=== PATIENT | female | born 1960 | race Caucasian/White ===

== ENCOUNTER 2019-06-25 06:00 | Inpatient (IN) | payer BC ==
[~2019-06-25] VITALS: Ht 160 cm; Wt 79.4 kg
[2019-06-25] MEDS ORDERED: ALVIMOPAN 12 MG CAPSULE PO ONE ×2 (06:45)
[2019-06-25] MEDS ORDERED: cefOXitin SODIUM 2 GM in D5W 100 ML IV ONE (06:45)
[2019-06-25] MEDS ORDERED: GLYCOPYRROLATE 0.2 MG/ML VIAL IJ ONE ×2 (07:30→10:53)
[2019-06-25] MEDS ORDERED: LABETALOL 100 MG/ 20ML VIAL IVP ONE (07:30)
[2019-06-25] MEDS ORDERED: hydrALAZINE HCL 20 MG/ML VIAL IVP ONE (07:30)
[2019-06-25] MEDS ORDERED: MIDAZOLAM HCL 5 MG/5 ML VIAL IVP ONE (07:30)
[2019-06-25] MEDS ORDERED: SEVOFLURANE 15 MIN GAS INH ONE (07:30)
[2019-06-25] MEDS ORDERED: BUPIVACAINE LIPOSOME/PF 266 MG/20 ML VIAL INFIL ONE ×2 (07:30→07:41)
[2019-06-25] MEDS ORDERED: ROCURONIUM BROMIDE 10 MG/ML (ZEMURON) IV ONE (07:30)
[2019-06-25] MEDS ORDERED: fentaNYL CITRATE/PF 100 MCG/2 ML AMP IVP ONE (07:30)
[2019-06-25] MEDS ORDERED: LIDOCAINE 1% 10 MG/ML, 20 ML MDV INJ ONE (07:30)
[2019-06-25] MEDS ORDERED: BUPIVACAINE /EPINEPHRINE/PF 0.5% 30 ML VIAL INJ ONE (07:30)
[2019-06-25] MEDS ORDERED: PHENYLEPHRINE HCL 10 MG/ML VIAL (NEOSYNEPHRINE) IV ONE (07:30)
[2019-06-25] MEDS ORDERED: NS IRRIG SOLN 1000 ML IR ONE (07:30)
[2019-06-25] MEDS ORDERED: NS 1000 ML IV.SOLN IV ONE ×2 (07:30)
[2019-06-25] MEDS ORDERED: LR 1,000 ML IV.SOLN IV ONE (07:30)
[2019-06-25] MEDS ORDERED: SIMV40TA2 PO (07:37)
[2019-06-25] MEDS ORDERED: INSU100V9 SQ (07:37)
[2019-06-25] MEDS ORDERED: HYDR25TA4 PO (07:37)
[2019-06-25] MEDS ORDERED: fentaNYL CITRATE/PF 100 MCG/2 ML AMP IVP PRN (08:00)
[2019-06-25] MEDS ORDERED: ONDANSETRON HCL 4 MG/2 ML VIAL IVP PRN ×2 (08:00→10:00)
[2019-06-25] MEDS ORDERED: D5/0.45 NS 1,000 ML IV SCH (09:57)
[2019-06-25] MEDS ORDERED: ACETAMINOPHEN 325 MG TABLET PO PRN (10:00)
[2019-06-25] MEDS ORDERED: HYDROcodone/ACETAMIN 5-325 MG TAB (NORCO/ VICODIN) PO PRN ×2 (10:00)
[2019-06-25] MEDS: fentaNYL CITRATE/PF 100 MCG/2 ML AMP IVP PRN ×2 (10:25→10:40)
[2019-06-25 10:33] LABS: HEMATOCRIT 30.2 % (36-48); HEMOGLOBIN 9.6 g/dL (12.0-16.0)
[2019-06-25 10:42] LABS: CALCIUM 7.9 mg/dL (8.4-11.0); CREATININE 2.72 mg/dL (0.55-1.30); POTASSIUM 4.2 mmol/L (3.5-5.1)
[2019-06-25] MEDS ORDERED: fentaNYL CITRATE/PF 100 MCG/2 ML AMP ONE (10:43)
[2019-06-25] MEDS ORDERED: GLYCOPYRROLATE 0.2 MG/ML VIAL IV ONE (11:00)
[2019-06-25] MEDS ORDERED: HYDROmorphone 1 MG INJ. 1 MG/ML AMPUL ONE (11:25)
[2019-06-25] MEDS ORDERED: ONDANSETRON HCL 4 MG/2 ML VIAL ONE (11:38)
--- NOTE | 2019-06-25 11:45 | NUR ---
Received patient via gurney, she was not alert and oriented, seemed still sedated from procedure. Her blood pressure was low, will continue to monitor every 15 mins and then 30 mins. IV line is patent and running fluids. Incision is covered w/gauze and not oozing or bleeding. I will continue to monitor patients progress. Bed is low, locked, 2 side rails up and call light within reach. Heron WILSON
--- NOTE | 2019-06-25 13:20 | NUR ---
CONSULT MEDICAL MANAGEMENT S/P POST OP DR CHRISTENSEN [phone] S/W LISA ALY
--- NOTE | 2019-06-25 14:00 | NUR ---
Patient is woke up and asked for pain medication, dilaudid was given via IV. Her blood pressure is much improved. Bed is low, locked, 2 side rails up and call light within reach. Heron WILSON
[2019-06-25] MEDS: metroNIDAZOLE 500 mg/NS 100 ML IV SCH ×2 (14:02→21:09)
[2019-06-25] MEDS: HYDROmorphone 1 MG INJ. 1 MG/ML AMPUL IVP PRN ×3 (14:02→21:23)
--- NOTE | 2019-06-25 16:00 | NUR ---
Patient is more awake and alert, admission questions were asked and patient was able to answer them. She is not showing any signs of distress. Pain medication was given earlier today. She was admitted for malignant neoplasm of the rectum and she had surgery to remove part of her bowel. Report will be given to nurse. Bed is low, locked, 2 side rails up and call light within reach. Heron WILSON
[2019-06-25 16:37] VITALS: BP_SYST 133
[2019-06-25 16:52] LABS: HEMATOCRIT 31.1 % (36-48); HEMOGLOBIN 9.9 g/dL (12.0-16.0)
[2019-06-25 17:07] VITALS: BP_SYST 123
--- NOTE | 2019-06-25 19:20 | NUR ---
OPENING NOTE: Patient is awake at time, AOx4. No s/s of acute distress noted. Breathing is even and unlabored. No complaints of pain noted at this time. IV site is patent without signs of infection or infiltration. Covarrubias catheter is patent, attached, and draining by gravity. Surgical site is without signs of active bleeding or draining. Patient has incentive spirometer at bedside. SCDs are attached and operating. Bed is locked in lowest position, bed alarm on, call light with patient. Patient educated on use and importance of call light. Patient verbalized understanding and properly demonstrated use. Will continue to monitor.
[2019-06-25 20:00] VITALS: BP_SYST 145
[2019-06-25] MEDS: ALVIMOPAN 12 MG CAPSULE PO SCH (21:00)
[2019-06-25] MEDS: FAMOTIDINE PF 20 MG/2 ML VIAL IVP SCH (21:23)
--- NOTE | 2019-06-25 21:23 | NUR ---
PAIN MANAGEMENT: Patient with complains of 7/10 pain at this time. Will medicate with PRN medication accordingly.
[2019-06-25] MEDS: cefOXitin SODIUM 2 GM in D5W 100 ML IV SCH (22:00)
--- NOTE | 2019-06-25 23:28 | NUR ---
EDUCATION ON IS/ROUNDS: Patient is resting at this time. States pain medication is effective. Breathing is even and unlabored. Patient was educated on use, importance, and benefits of incentive spirometer. Patient verbalized understanding and properly demonstrated use hitting the 1500 dylan. No new needs at this time. Bed locked in lowest position, bed alarm is on, call light with patient. Will continue to monitor.
[2019-06-26 00:19] VITALS: BP_SYST 132
[2019-06-26] MEDS: HYDROmorphone 1 MG INJ. 1 MG/ML AMPUL IVP PRN ×3 (01:22→09:58)
--- NOTE | 2019-06-26 01:25 | NUR ---
PAIN MANAGEMENT: Patient complaining of 9/10 pain in abdomen. Repositioning and deep breathing encouraged and patient medicated accordingly. Will continue to monitor.
--- NOTE | 2019-06-26 03:30 | NUR ---
ROUNDS: Patient is asleep at this time. Breathing is even and unlabored. Bed locked in lowest position, bed alarm on, call light with patient. Will continue to monitor.
--- NOTE | 2019-06-26 05:50 | NUR ---
PAIN MANAGEMENT: Patient with complaints of pain 8/10 in abdomen and lower pack. Will give PRN medications accordingly. Will continue to monitor.
[2019-06-26 06:19] LABS: BASOPHILS % (AUTO) 0.6 % (0.0-2.0); EOSINOPHILS # (AUTO) 0.1 K/uL (0.0-0.4); EOSINOPHILS % (AUTO) 0.9 % (0.0-4.0); HEMATOCRIT 27.9 % (36-48); LYMPHOCYTES % (AUTO) 23.9 % (20.5-51.5); MEAN CORPUSCULAR HEMOGLOBIN 26 pg (27-31); MEAN CORPUSCULAR HGB CONC 32 % (32-36); MEAN CORPUSCULAR VOLUME 81 fL (79.0-98.0); MONOCYTES # (AUTO) 0.8 K/uL (0.0-1.0); MONOCYTES % (AUTO) 9.5 % (1.7-9.3); NEUTROPHILS # (AUTO) 5.4 K/uL (1.8-7.7); NEUTROPHILS % (AUTO) 65.1 % (40.0-70.0); PLATELET COUNT (AUTO) 332 K/uL (130-430); RED BLOOD CELL COUNT(AUTO) 3.44 MIL/uL (4.2-6.2); RED CELL DISTRIBUTION WIDTH 14.2 % (9.0-15.0); WHITE BLOOD COUNT (AUTO) 8.3 K/uL (4.8-10.8)
--- NOTE | 2019-06-26 06:45 | NUR ---
CLOSING NOTE: Patient is awake at time, AOx4. No s/s of acute distress noted. Breathing is even and unlabored. No complaints of pain noted at this time. IV site is patent without signs of infection or infiltration. Covarrubias catheter is patent, attached, and draining by gravity. Surgical site is without signs of active bleeding or draining. Patient has incentive spirometer at bedside. SCDs are attached and operating. All needs met throughout the shift. All safety and fall precautions maintained throughout the shift. Will continue to monitor until endorsement of care to dayshift nurse.
[2019-06-26 06:53] LABS: CALCIUM 7.4 mg/dL (8.4-11.0); CREATININE 3.06 mg/dL (0.55-1.30); POTASSIUM 4.4 mmol/L (3.5-5.1); TOTAL BILIRUBIN 0.3 mg/dL (0.0-1.0)
--- NOTE | 2019-06-26 07:51 | NUR ---
Opening notes Received pt in bed , pt is aaox4, denies pain, no sob, no resp distress. vitals wnl. no fever. abd surgical dressing dry and intact, no drainage noted. pt encouraged to call for assist and pain meds. call light in reach. bed in low position. will cont to monitor.
[2019-06-26 07:54] VITALS: BP_SYST 126
--- NOTE | 2019-06-26 08:30 | NUR ---
pt ambulated with charge nurse fabby in the [address]. pt tolerated well.
[2019-06-26] MEDS: FAMOTIDINE PF 20 MG/2 ML VIAL IVP SCH ×2 (08:37→21:23)
[2019-06-26] MEDS: cefOXitin SODIUM 2 GM in D5W 100 ML IV SCH (08:37)
[2019-06-26] MEDS: ENOXAPARIN SODIUM 30 MG/0.3 ML SYRINGE SUBCUT SCH (08:43)
[2019-06-26] MEDS: ALVIMOPAN 12 MG CAPSULE PO SCH ×2 (09:02→21:22)
--- NOTE | 2019-06-26 09:38 | NUR ---
Nutrition Update Nick Scale 15 noted. Pt admitted for malignant neoplasm of rectum. Diet: clear liquid BMI: 31 kg/m2 RD to follow per nutrition care standards.
--- NOTE | 2019-06-26 09:55 | NUR ---
PT GIVEN PAIN MED AFTER ASSISTED BACK FOR BED FROM CHAIR.
[2019-06-26] MEDS ORDERED: DEXTROSE 50% JECT 50 ML DISP.SYRIN IVP PRN (11:30)
[2019-06-26] MEDS: METOCLOPRAMIDE HCL 10 MG/2 ML VIAL IVP SCH ×2 (12:31→17:15)
[2019-06-26] MEDS: INSULIN REGULAR, HUMAN 100 UNITS/ML, 10 ML VIAL (humuLIN R) SUBCUT PRN ×2 (12:33→17:08)
[2019-06-26 13:03] VITALS: BP_SYST 157
--- NOTE | 2019-06-26 15:06 | NUR ---
PT C/O NOT FEELING GOOD, REQUESTED THIS RN TO CHECK HER BLOOD SUGAR. IT WAS 393. WILL CONT TO MONITOR PT.
[2019-06-26 17:37] VITALS: BP_SYST 154
--- NOTE | 2019-06-26 19:05 | NUR ---
OPENING NOTE: Patient awake at this time, AOx4. No acute distress noted. Patient is without complaints of pain at this time. Breathing is even and unlabored. IV site is without signs of infection or infiltration. Incentive spirometer is on the beside table. Patient has been educated on use and benefits and encouraged to do so while awake. Patient verbalized understanding and demonstrated proper use. Patient tolerated 500mL. Will continue to encourage and monitor progress. Patient has walker bedside, but does not need it to ambulate as she ambulates with a steady gait. Bed locked in lowest position, call light with patient. Patient educated on use and importance of call light. Patient verbalized understanding and demonstrated proper use. Will continue to monitor.
[2019-06-26 20:00] VITALS: BP_SYST 149
--- NOTE | 2019-06-26 21:30 | NUR ---
MCKEON CATH DC: Mckeon catheter discontinued at this time. Bulb deflated with 9cc water. Output of urine in bag is 350mL. Pt tolerated procedure well no acute distress noted. Will continue to monitor.
--- NOTE | 2019-06-26 23:44 | NUR ---
SBAR Report Received from Ella WILSON .
[2019-06-27] VITALS: BP_SYST 156
[2019-06-27] MEDS: METOCLOPRAMIDE HCL 10 MG/2 ML VIAL IVP SCH ×3 (01:33→12:23)
--- NOTE | 2019-06-27 01:41 | NUR ---
CONSULTATION PAGED/CALLED Reason for Consultation: RENAL FAILURE Person Who was Notified: MARLON Consulting Physician: KIA De Ionizer Operator Specialty: NEPHRO Ordering Physician: AMPARO
--- NOTE | 2019-06-27 03:49 | NUR ---
ASSIST Patient out of bed to Rest Room ambulates safety measures implemented call white given to patient .
--- NOTE | 2019-06-27 03:52 | NUR ---
MCKEON CATHETER has been d/c patient is able to urinate uses Rest Room as needed ambulates alert oriented .
[2019-06-27] MEDS: INSULIN REGULAR, HUMAN 100 UNITS/ML, 10 ML VIAL (humuLIN R) SUBCUT PRN ×2 (06:00→12:28)
--- NOTE | 2019-06-27 06:48 | NUR ---
Patient awake alert assist out of bed ambulates to Rest Room safety measures implemented fall measures effective .
[2019-06-27 08:11] VITALS: BP_SYST 154
--- NOTE | 2019-06-27 08:25 | NUR ---
DR BENJAMIN WAS HERE AND SEEN PT, SPOKE WITH PT RE FOLLOW UP AND DISCHARGE.
[2019-06-27 09:58] LABS: BASOPHILS # (AUTO) 0.1 K/uL (0.0-0.2); BASOPHILS % (AUTO) 0.6 % (0.0-2.0); EOSINOPHILS # (AUTO) 0.1 K/uL (0.0-0.4); EOSINOPHILS % (AUTO) 0.9 % (0.0-4.0); HEMATOCRIT 28.4 % (36-48); HEMOGLOBIN 9.1 g/dL (12.0-16.0); LYMPHOCYTES # (AUTO) 1.8 K/uL (1.0-5.5); LYMPHOCYTES % (AUTO) 16.3 % (20.5-51.5); MEAN CORPUSCULAR HEMOGLOBIN 26 pg (27-31); MEAN CORPUSCULAR HGB CONC 32 % (32-36); MEAN CORPUSCULAR VOLUME 82 fL (79.0-98.0); MONOCYTES # (AUTO) 0.8 K/uL (0.0-1.0); MONOCYTES % (AUTO) 6.8 % (1.7-9.3); NEUTROPHILS # (AUTO) 8.4 K/uL (1.8-7.7); NEUTROPHILS % (AUTO) 75.4 % (40.0-70.0); PLATELET COUNT (AUTO) 321 K/uL (130-430); RED BLOOD CELL COUNT(AUTO) 3.47 MIL/uL (4.2-6.2); WHITE BLOOD COUNT (AUTO) 11.1 K/uL (4.8-10.8)
--- NOTE | 2019-06-27 10:00 | NUR ---
PT ATE ABOUT 10 PERCENT OF REGULAR DIET PROVIDED TO HER, NO C/O OF PAIN.
[2019-06-27 10:16] LABS: CALCIUM 7.8 mg/dL (8.4-11.0); CREATININE 2.87 mg/dL (0.55-1.30); POTASSIUM 3.9 mmol/L (3.5-5.1)
[2019-06-27] MEDS: FAMOTIDINE PF 20 MG/2 ML VIAL IVP SCH (10:16)
[2019-06-27] MEDS: ENOXAPARIN SODIUM 30 MG/0.3 ML SYRINGE SUBCUT SCH (10:17)
[2019-06-27 10:20] LABS: ALBUMIN 2.2 g/dL (3.4-4.8); TOTAL BILIRUBIN 0.4 mg/dL (0.0-1.0)
[2019-06-27] MEDS: ALVIMOPAN 12 MG CAPSULE PO SCH (10:20)
[2019-06-27 12:47] VITALS: BP_SYST 136
[2019-06-27] MEDS ORDERED: HYDR-4272 PO (13:16)
--- NOTE | 2019-06-27 13:40 | NUR ---
D/C Patient Patient given medication reconciliation form and D/C instructions. Exit Care provided. Patient verbalized understanding. MD discussed with patient the results and treatment provided. Ambulatory with steady gait for discharge to home. Patient in stable condition, ID band removed. IV catheter removed, intact and dressing applied, no active bleeding. Rx of NORCO given. Patient educated on pain management. All belongings sent with patient.
== END 2019-06-27 13:40 | disposition home or self-care (01) | DRG 329 ==
LOC: SMU 06:00
PROVIDERS: ADMIT Colon & Rectal Surgery; ATTEND Colon & Rectal Surgery
PROC: 0DBP0ZZ Excision of Rectum, Open Approach (ICD-10-PCS; 2019-06-25)
PROC: 0DBN0ZZ Excision of Sigmoid Colon, Open Approach (ICD-10-PCS; principal; 2019-06-25 07:30)
DX: C19 Malignant neoplasm of rectosigmoid junction (principal); N17.0 Acute kidney failure with tubular necrosis; K66.0 Peritoneal adhesions (postprocedural) (postinfection); E11.9 Type 2 diabetes mellitus without complications; Z79.4 Long term (current) use of insulin; Z79.899 Other long term (current) drug therapy
CPT/HCPCS: 36415; 76770; 80048; 80053; 82962; 85018-TC; 85025; 86886; 86900; 86901; 87081; 88307; 88309; 94010; C1727; C9290; J0360; J0694; J1170; J1650; J2001; J2250; J2370; J2405; J2765; J3010; J3490; J7030; J7060; J7120

== ENCOUNTER 2022-04-07 08:58 | Emergency (ER) | payer BC ==
[~2022-04-07] VITALS: Ht 162.6 cm; Wt 63.5 kg
[~2022-04-07 08:58] MED LIST: HYDR-4272 PO; INSU100V9 SQ; SIMV40TA2 PO
[2022-04-07 09:00] VITALS: BP_SYST 132
--- NOTE | 2022-04-07 09:01 | NUR ---
BROUGHT BACK TO BED #6 AND TRIAGED. REPORT GIVEN TO VICENTE
--- NOTE | 2022-04-07 09:34 | NUR ---
PT COMES TO ER WITH C/O LEFT UPPER ARM SHUNT NOT WORKING SINCE THIS MORNING. LAST DIALYSIS 2 DAYS AGO ON Tuesday04/05/22. PT HAS NO MEDICAL COMPLIANTS. RESP EVEN AND UNLABORED, ON RA @98%. VSS
--- NOTE | 2022-04-07 09:55 | NUR ---
DR ALLRED IN ROOM FOR EXAM
[2022-04-07 10:22] LABS: BASOPHILS # (AUTO) 0.1 K/uL (0.0-0.2); BASOPHILS % (AUTO) 0.7 % (0.0-2.0); EOSINOPHILS # (AUTO) 0.3 K/uL (0.0-0.4); EOSINOPHILS % (AUTO) 3.2 % (0.0-4.0); HEMATOCRIT 36.4 % (36-48); HEMOGLOBIN 11.9 g/dL (12.0-16.0); LYMPHOCYTES # (AUTO) 1.9 K/uL (1.0-5.5); LYMPHOCYTES % (AUTO) 23.8 % (20.5-51.5); MEAN CORPUSCULAR HEMOGLOBIN 28 pg (27-31); MEAN CORPUSCULAR HGB CONC 33 % (32-36); MEAN CORPUSCULAR VOLUME 85 fL (79.0-98.0); MONOCYTES # (AUTO) 0.4 K/uL (0.0-1.0); MONOCYTES % (AUTO) 5.3 % (1.7-9.3); NEUTROPHILS # (AUTO) 5.4 K/uL (1.8-7.7); PLATELET COUNT (AUTO) 262 K/uL (130-430); RED BLOOD CELL COUNT(AUTO) 4.29 MIL/uL (4.2-6.2); RED CELL DISTRIBUTION WIDTH 15.8 % (9.0-15.0)
[2022-04-07 10:33] LABS: CALCIUM 8.8 mg/dL (8.4-11.0)
[2022-04-07 10:36] LABS: CREATININE 8.26 mg/dL (0.55-1.30)
--- NOTE | 2022-04-07 10:41 | NUR ---
NO ACUTE CHANGES IN CONDITION, PT IN NAD.
--- NOTE | 2022-04-07 11:47 | NUR ---
NO ACUTE CHANGES IN CONDITION, PT IN NAD. RESP EVEN AND UNLABORED, ON RA @98%
--- NOTE | 2022-04-07 12:55 | NUR ---
[place] of care received, pt A&Ox4 , pt VSS, respirations even and unlabored, will cont to monitor.
--- NOTE | 2022-04-07 13:37 | NUR ---
Pt awaiting for ultrasound, VSS
[2022-04-07] MEDS ORDERED: AMLO5TAB92 PO (14:23)
[2022-04-07] MEDS ORDERED: RENA-VITE (14:23)
[2022-04-07] MEDS ORDERED: SIMV-46 PO (14:23)
[2022-04-07] MEDS ORDERED: CARV6.2554 PO (14:23)
--- NOTE | 2022-04-07 14:28 | NUR ---
MRSA and covid sent to the lab
--- NOTE | 2022-04-07 15:30 | NUR ---
SPOKE TO EMBER, [employer] LACE SEWER, GAVE UPDATE ON PT STATUS. STATED THAT [facility] IS AT [facility]ACITY AND IS WAITING FOR [facility] TO CALL BACK TO SEE IF PT CAN BE ACCEPTED. STATED SHE WILL CALL BOBBY DÍAZ AND GIVE UPDATE.
--- NOTE | 2022-04-07 16:47 | NUR ---
CECILIA PA CLINICAL ASSOCIATE, CALLED BACK AND STATED PT HAS BEEN ACCEPTED TO [facility]. DR. CASTAÑEDA IS ACCEPTING. STATED PT IS PLACED ON TRACKER AND WAITING FOR BED PLACEMENT. CASE WILL BE ENDORSED TO AFTER HOURS CLINICAL ASSOCIATE AND WILL FOLLOW UP SOON THERE IS AN UPDATE. AFTER HOURS #: [phone]
--- NOTE | 2022-04-07 17:57 | NUR ---
TRANSFER INFO [facility] RM: [id number] ACCEPTING: Dr. Bertrand REPORT: [phone] will call for transport to accepted facility
--- NOTE | 2022-04-07 18:30 | NUR ---
Pt BS 38, Pt A&Ox4, Dr Shah awared, dinner tray/ apple juice given to patient, well tolerated, will cont to monitor.
--- NOTE | 2022-04-07 18:59 | NUR ---
Attempted to call report to [facility], unable to reach nurse at this time
--- NOTE | 2022-04-07 19:05 | NUR ---
Report given to Krys WILSON at [facility] , pt A&Ox4, VSS, will cont to monitor.
[2022-04-07] MEDS ORDERED: DEXTROSE 50% JECT 50 ML DISP.SYRIN IVP ONE (19:30)
--- NOTE | 2022-04-07 19:44 | NUR ---
pt resting on gurney, connected to bedside monitors. a & o x 4, pupils perrl. pt was to have dialysis today and a pulse was not felt at the dialysis access. pt was found to be positive for DVT of the left arm. denies any pain at this time. no acute distress noted. gurney in lowest locked position. will continue to monitor.
--- NOTE | 2022-04-07 21:09 | NUR ---
accu check 348
--- NOTE | 2022-04-07 21:12 | NUR ---
pt resting on gurney, connected to bedside monitors. a & o x 4, pupils perrl. EMS here to take pt to [facility]. pt denies any pain or complaints at this time. no acute distress noted. gurney in lowest locked position.
--- NOTE | 2022-04-07 21:33 | NUR ---
Patient to be transferred to [facility]. Is being transferred due to higher level of care. Receiving facility has accepting physician and available space. ER physician has signed transfer form. Patient or responsible green party has agreed to transfer and signed form. Patient belongings inventoried and will be sent with patient. Copy of nursing notes, lab reports, EKG, Physicians Orders and X-rays to be sent with patient. Report called to Krys at receiving facility. ambulance service has been called for transfer. ETA is one hour.
[2022-04-08 00:06] VITALS: BP_SYST 151
== END 2022-04-07 21:09 | disposition short-term general hospital (02) ==
LOC: SED 08:58
DX: T82.49XA Other complication of vascular dialysis catheter, initial encounter (principal); N18.6 End stage renal disease; Z79.899 Other long term (current) drug therapy; Z20.822 Contact with and (suspected) exposure to COVID-19
CPT/HCPCS: 36415; 80048; 82962; 85025; 87081; 93971; 96374; 99285